=== PATIENT | female | born 1955 | race African-American/Black ===

== ENCOUNTER → 2017-04-05 17:19 | Outpatient (CLI) | payer MEDICARE, MEDICAID ==
[2015-07-14 13:05] VITALS: BMI 25.3
[~2017-04-05 17:19] MED LIST: BAYER CHEWABLE81 MG PO; CELEXA20 MG PO; GLUCOPHAGE XR750 MG; GLUCOPHAGE XR750 MG PO; LISINOPRIL10 MG PO; PRAVACHOL20 MG PO
== END | disposition home or self-care (01) ==
LOC: D.MAMMO 15:30
DX: Z12.31 Encounter for screening mammogram for malignant neoplasm of breast (principal)